=== PATIENT | female | born 1985 | race Caucasian/White ===

== ENCOUNTER 2023-05-17 10:56 | Emergency (ER) | payer OTHER ==
--- NOTE | 2023-05-17 11:21 | ED Physician Documentation ---
History of Present Illness - Stated complaint Stated Complaint: LT SIDE NUMBNESS - Chief complaint Chief Complaint: Neuro - Additonal information Additional information: Patient is 37-year-old female presenting with numbness to the left side of her face. Woke this morning with numbness to the left side of her face as well as some numbness involving her left arm, specifically the pinky and ring finger. The numbness in the arm has resolved. She has some persistent numbness in the left side of her face. She is currently on a camping trip and has been sleeping in the back of her camper. No weakness or numbness. No facial droop or p romises with balance. No history of vesicular lesions or history of herpes simplex. No difficulties with hearing. Review of Systems Constitutional: denies: Fever Eyes: denies: Loss of vision Ears: denies: Loss of hearing Nose: denies: Rhinorrhea / runny nose Throat: denies: Dental pain / toothache Cardiac: denies: Chest pain / pressure Respiratory: denies: Dyspnea GI: denies: Abdominal Pain : denies: Dysuria Skin: denies: Rash Musculoskeletal: denies: Neck pain Neurologic: reports: Numbness PD PAST MEDICAL HISTORY - Present Medications Home Medications: Ambulatory Orders Medication Instructions Recorded Confirmed Losartan [Cozaar] 25 mg PO DAILY 05/17/23 05/17/23 - Allergies Allergies/Adverse Reactions: Allergies Allergy/AdvReac Type Severity Reaction Status Date / Time No Known Drug Allergies Allergy Verified 05/17/23 11:11 PD ED PE NORMAL - Vitals Vital signs reviewed: Yes - General General: Alert and oriented X 3, No acute distress, Well developed/nourished - HEENT HEENT: Atraumatic - Neck Neck: Supple, no meningeal sign - Cardiac Cardiac: RRR, No murmur - Respiratory Respiratory: No respiratory distress - Abdomen Abdomen: Normal bowel sounds - Female Female : Deferred - Rectal Rectal: Deferred - Back Back: No CVA TTP - Derm Derm: Normal color - Neuro Neuro: Alert and oriented X 3, 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 Ongoing x1 day. She has been camping recently and sleeping in an unfamiliar environment. Numbness is isolated to the V2 distribution to the left side of the face. There is no facial droop, cranial nerves are otherwise fully intact and no other focal or lateralizing neurologic deficit. She did report that she had some left arm numbness specifically in the C5 distribution of the left hand involving the pinky and ring finger however this has resolved. No indications of CVA, Deng's palsy or other severe peripheral neuropathy at this time. Imaging and other studies are considered however do not believe that they are warranted. I did discuss the nature of isolated Peripheral nerve palsies and their expected course with the patient. Additionally we discussed return precautions for any worsening symptoms or development of hemiparesis of the face or other symptoms that would indicate a more severe process. Clear return precautions given prior to discharge. Departure - Departure Clinical Impression: Left facial numbness Comments: Thank you for allowing us to care for you today at [facility]. Your neurologic exam in the emergency department today is very reassuring. As we discussed there are many reasons why he can have isolated numbness in a particular nerve distribution of the face. Often this can be because of mild pressure injury or unusual sleeping positions. There are however more rare and less common reasons why symptoms like this can develop. Please monitor your symptoms carefully over the course of the next few days. If they worsen or if you develop other concerning symptoms like those discussed here in the emergency department such as partial or complete facial paralysis, Severe headache, blurred vision, double vision or other strokelike symptoms its important that you return to the emergency department immediately for reevaluation.
[2023-05-17 11:22] VITALS: BP 154/95
== END 2023-05-17 11:55 | disposition home or self-care (01) ==
LOC: ED 10:56
DX: R20.0 Anesthesia of skin (principal)
CPT/HCPCS: 99281; 99283